=== PATIENT | male | born 1990 | race Asian ===

== ENCOUNTER → 2022-05-14 15:33 | Outpatient (CLI) | payer OTHER, MEDICAID, SELFPAY | PROVIDERS: Visit Provider Nurse Practitioner Family | DX: J02.9 Acute pharyngitis, unspecified (principal) | CPT/HCPCS: 87070; 87077; 87147; 87880 ==

== ENCOUNTER 2022-08-24 18:31 | Emergency (ER) | payer OTHER, MEDICAID, SELFPAY ==
[2022-08-24 19:54] VITALS: BP 117/67; PULSE 83; RESP 18; TEMP 36.4; O2SAT 98; BMI 31.7
== END 2022-08-24 22:50 | disposition left against medical advice (07) ==
PROVIDERS: Emergency Provider Emergency Medicine
CPT/HCPCS: 99281

== ENCOUNTER 2022-08-26 06:00 | Emergency (ER) | payer OTHER, MEDICAID, SELFPAY ==
[2022-08-26 06:13] VITALS: BP 139/81; PULSE 76; RESP 20; TEMP 36.8; O2SAT 96; BMI 31.0
--- NOTE | 2022-08-26 18:24 | ED.UPPEXIN ---
HPI - Extremity Injury (Upper) General Chief Complaint: Extremity Injury, Upper Stated Complaint: hands swelling after taking antibotics Time Seen by Provider: 08/26/22 06:11 Source: patient Mode of arrival: Ambulatory Related Data Previous Rx's Medication Instructions Recorded amoxicillin 875 mg-potassium 1 tab PO BID #20 tabs 08/25/22 clavulanate 125 mg tablet mupirocin 2 % topical ointment 1 applic topical BID #2 tubes 08/25/22 Allergies Allergy/AdvReac Type Severity Reaction Status Date / Time No Known Drug Allergies Allergy Verified 08/25/22 17:41 Patient History Social History Smoking Status: Former smoker Smoking Status: Former smoker alcohol intake frequency: holidays/special occasions only Substance Use Type: does not use Exam Initial Vital Signs Initial Vital Signs: Vital Signs Temperature 98.2 F 08/26/22 06:13 Pulse Rate 76 08/26/22 06:13 Respiratory Rate 20 08/26/22 06:13 Blood Pressure 139/81 08/26/22 06:13 Pulse Oximetry 96 08/26/22 06:13 Oxygen Delivery Method 08/26/22 06:13 Discharge Plan Departure Patient Disposition: Left Without Being Seen Clinical Impression: Patient left without being seen Prescriptions: No Action amoxicillin-pot clavulanate 875-125 mg tablet 1 tab PO BID Qty: 20 0RF mupirocin 2 % ointment 1 applic topical BID Qty: 2 1RF Rx Instructions: apply thin film to affected area BID to affected area
== END 2022-08-26 07:00 | disposition left against medical advice (07) ==
PROVIDERS: Emergency Provider Emergency Medicine
CPT/HCPCS: 99281